=== PATIENT | male | born 1940 | race Caucasian/White ===

== ENCOUNTER 2017-09-05 10:03 | Emergency (ER) | payer OTHER ==
[2017-09-05] MEDS ORDERED: MORPHINE 4 MG/ML 1ML VIAL/SYRINGE (J2270) IV (10:30)
[2017-09-05] MEDS: NS 1,000 ML IV (10:40)
[2017-09-05] MEDS: ceFAZolin SOD 1 GM in D5W MINI-BAG PLUS 50 ML IV (10:41)
[2017-09-05] MEDS: TETANUS/DIPHTHERIA TOX ADSORB ADULT 0.5ML SYR/VIAL (90714) IM (10:41)
== END 2017-09-05 12:01 | disposition short-term general hospital (02) ==
LOC: M ED 10:03
DX: S68.521A Partial traumatic transphalangeal amputation of right thumb, initial encounter (principal); W26.8XXA Contact with other sharp object(s), not elsewhere classified, initial encounter; Y92.9 Unspecified place or not applicable; Y93.9 Activity, unspecified; Y99.9 Unspecified external cause status; I10 Essential (primary) hypertension; E11.9 Type 2 diabetes mellitus without complications; Z87.891 Personal history of nicotine dependence
CPT/HCPCS: J0690

== ENCOUNTER 2021-09-05 03:21 | Inpatient (IN) | payer MEDICARE, OTHER ==
[~2021-09-05] VITALS: Ht 182.9 cm; Wt 95.0 kg
[2021-09-05] MEDS ORDERED: ACETAMINOPHEN TAB 650MG DOSE (2X325MG) PO ONE (03:45)
[2021-09-05 04:04] LABS: BASO % 0.2 % (0.0-1.0); EOS % 0.1 % (0.0-3.0); HEMATOCRIT 33.9 % (42.0-52.0); LYMPH # 0.6 10^3/uL (1.5-5.0); LYMPH % 4.7 % (24.0-44.0); MEAN CORPUSCULAR HEMOGLOBIN 32.5 pg (27.0-33.0); MEAN CORPUSCULAR HGB CONC 32.4 g/dl (32.0-36.5); MEAN CORPUSCULAR VOLUME 100.3 fl (80.0-96.0); MONO # 0.7 10^3/uL (0.0-0.8); MONO % 5.8 % (2.0-8.0); NEUTROPHILS # 10.7 10^3/uL (1.5-8.5); NEUTROPHILS % 86.8 % (36.0-66.0); PLATELET COUNT, AUTOMATED 147 10^3/uL (150-450); RED BLOOD COUNT 3.38 10^6/uL (4.30-6.10); WHITE BLOOD COUNT 12.3 10^3/uL (4.0-10.0)
[2021-09-05] MEDS ORDERED: METO1TAB87 PO (04:17)
[2021-09-05] MEDS ORDERED: PIOG1TAB55 PO (04:17)
[2021-09-05 04:21] LABS: CALCIUM LEVEL 9.2 MG/DL (8.8-10.2); CREATININE FOR GFR 1.31 MG/DL (0.70-1.30); MAGNESIUM LEVEL 1.6 MG/DL (1.8-2.4)
[2021-09-05] MEDS ORDERED: GLIM4TAB5 PO (04:23)
[2021-09-05] MEDS ORDERED: XARE20TA PO (04:23)
[2021-09-05] MEDS ORDERED: METF10004 PO (04:23)
[2021-09-05] MEDS ORDERED: RAMI1CAP26 PO (04:23)
[2021-09-05 04:39] LABS: RSV AMPLIFICATION NEGATIVE (NEGATIVE)
[2021-09-05] MEDS ORDERED: PIPERACILLIN/TAZOBACTAM SOD 4.5 GM in D5W MINI-BAG PLUS 50 ML IV ONE (05:00)
[2021-09-05] MEDS ORDERED: NS 1,000 ML IV ONE (05:00)
[2021-09-05] MEDS ORDERED: VANCOMYCIN HCL 1,000 MG in IV FLUID PLACE HOLDER 1 EA IV ONE (05:00)
[2021-09-05] MEDS ORDERED: GLUCAGON INJ 1MG VIAL SC PRN (05:45)
[2021-09-05] MEDS ORDERED: VANCOMYCIN HCL 1,000 MG, VIAL MATE ADAPTER 1 EACH in NS 250 ML IV SCH (05:45)
[2021-09-05] MEDS ORDERED: DEXTROSE 50% 50 ML SYRINGE IV PRN (05:45)
[2021-09-05] MEDS ORDERED: SODIUM CHLORIDE 0.9% 1000ML IV SCH (05:45)
[2021-09-05] MEDS ORDERED: GLUCOSE 4GM CHEW TABLET PO PRN (05:45)
[2021-09-05] MEDS ORDERED: VANCOMYCIN HCL 1,000 MG, VIAL MATE ADAPTER 1 EACH in NS 250 ML IV ONE ×6 (06:00)
[2021-09-05] MEDS ORDERED: VITA100093 PO (06:06)
[2021-09-05] MEDS ORDERED: CINN500C15 PO (06:06)
[2021-09-05] MEDS ORDERED: NS 1,000 ML IV SCH (06:20)
[2021-09-05] MEDS ORDERED: HOME MED LIST COMPLETE! XX SCH (06:35)
[2021-09-05] MEDS: DOCUSATE SODIUM 100MG CAPSULE PO SCH ×2 (09:13→20:06)
[2021-09-05] MEDS: INSULIN LISPRO (NovoLOG) PER UNIT SC SCH ×4 (09:13→20:06)
[2021-09-05] MEDS ORDERED: NS 500 ML IV ONE (10:25)
[2021-09-05] MEDS ORDERED: NS 2,000 ML IV ONE (10:30)
[2021-09-05] MEDS: cefTRIAXone SOD 1 GM in D5W MINI-BAG PLUS 50 ML IV SCH (13:13)
[2021-09-05 14:30] VITALS: BP 126/53
[2021-09-05] MEDS ORDERED: MAGNESIUM OXIDE 400MG TAB (MAG-OX) PO ONE (14:30)
[2021-09-05] MEDS: NS 1,000 ML IV SCH (14:51)
[2021-09-05] MEDS: THIAMINE INJection 500 MG in NS 100 ML IV SCH (17:44)
[2021-09-05 18:00] VITALS: BP 121/59
[2021-09-05 19:54] VITALS: BP 125/54
[2021-09-05] MEDS: VANCOMYCIN HCL 750 MG, VIAL MATE ADAPTER 1 EACH in D5W 250 ML IV SCH (20:05)
[2021-09-05] MEDS: NYSTATIN 100,000 UNITS/GM TOPICAL PWD 15 GM TOP SCH (21:00)
[2021-09-06] VITALS (10 sets, daily range): BP systolic 110–142; BP diastolic 55–78; O2SAT 96–98
[2021-09-06] MEDS: NS 1,000 ML IV SCH ×2 (00:32→09:43)
[2021-09-06] MEDS: THIAMINE INJection 500 MG in NS 100 ML IV SCH (02:52)
[2021-09-06] MEDS: INSULIN LISPRO (NovoLOG) PER UNIT SC SCH ×4 (07:30→21:00)
[2021-09-06 07:59] LABS: HEMATOCRIT 31.8 % (42.0-52.0); HEMOGLOBIN 10.1 g/dl (13.5-17.5); MEAN CORPUSCULAR HEMOGLOBIN 32.9 pg (27.0-33.0); MEAN CORPUSCULAR HGB CONC 31.8 g/dl (32.0-36.5); MEAN CORPUSCULAR VOLUME 103.6 fl (80.0-96.0); PLATELET COUNT, AUTOMATED 131 10^3/uL (150-450); RED BLOOD COUNT 3.07 10^6/uL (4.30-6.10); WHITE BLOOD COUNT 10.3 10^3/uL (4.0-10.0)
[2021-09-06 08:22] LABS: EOSINOPHILS 2 % (0-3); LYMPHOCYTES 9 % (16-44); MONOCYTES 5 % (0-5); NEUTROPHILS 71 % (28-66)
[2021-09-06 08:23] LABS: CALCIUM LEVEL 8.6 MG/DL (8.8-10.2); CREATININE FOR GFR 1.41 MG/DL (0.70-1.30); GLOMERULAR FILTRATION RATE 51.5 (>35); MAGNESIUM LEVEL 1.8 MG/DL (1.8-2.4); PHOSPHORUS LEVEL 2.5 MG/DL (2.5-4.9); POTASSIUM SERUM 3.7 MEQ/L (3.5-5.1); VANCOMYCIN LEVEL TROUGH 13.8 UG/ML (10.0-20.0)
[2021-09-06 08:23] LABS: DOHLE BODIES 1+; OVALOCYTES 1+
[2021-09-06 08:24] LABS: PLATELET ESTIMATE DECREASED (NORMAL)
[2021-09-06] MEDS: DOCUSATE SODIUM 100MG CAPSULE PO SCH ×2 (09:41→21:11)
[2021-09-06] MEDS: VANCOMYCIN HCL 750 MG, VIAL MATE ADAPTER 1 EACH in D5W 250 ML IV SCH (09:42)
[2021-09-06] MEDS: NYSTATIN 100,000 UNITS/GM TOPICAL PWD 15 GM TOP SCH ×2 (11:22→21:11)
[2021-09-06] MEDS ORDERED: ACETAMINOPHEN TAB 650MG DOSE (2X325MG) PO ONE (11:25)
[2021-09-06] MEDS ORDERED: methylPREDNISolone 40MG 1ML VIAL IV ONE (11:50)
[2021-09-06] MEDS: IPRATROPIUM 0.5MG/ALBUTEROL 2.5MG INH SOL UD 3ML (DUONEB) NEB SCH ×4 (11:54→23:45)
[2021-09-06] MEDS ORDERED: FUROSEMIDE 20MG/2ML VIAL (J1940) IV ONE (11:55)
[2021-09-06] MEDS: cefTRIAXone SOD 1 GM in D5W MINI-BAG PLUS 50 ML IV SCH (12:02)
[2021-09-06] MEDS ORDERED: INSULIN LISPRO (NovoLOG) PER UNIT SC ONE ×2 (17:25→22:00)
[2021-09-06] MEDS: methylPREDNISolone 40MG 1ML VIAL IV SCH ×2 (19:52→21:48)
[2021-09-06] MEDS: LINEZOLID 600MG TABLET (ZYVOX) PO SCH (21:11)
[2021-09-07] MEDS ORDERED: LEVEMIR (INSULIN DETEMIR) 1 UNITS/0.01ML SC ONE
[2021-09-07 01:18] VITALS: BP 128/60
[2021-09-07] MEDS: IPRATROPIUM 0.5MG/ALBUTEROL 2.5MG INH SOL UD 3ML (DUONEB) NEB SCH ×3 (04:00→11:13)
[2021-09-07] MEDS ORDERED: INSULIN LISPRO (NovoLOG) PER UNIT SC ONE ×3 (05:00→13:05)
[2021-09-07] MEDS: methylPREDNISolone 40MG 1ML VIAL IV SCH (05:08)
[2021-09-07 05:59] LABS: HEMATOCRIT 28.2 % (42.0-52.0); HEMOGLOBIN 9.4 g/dl (13.5-17.5); MEAN CORPUSCULAR HGB CONC 33.3 g/dl (32.0-36.5); MEAN CORPUSCULAR VOLUME 98.9 fl (80.0-96.0); PLATELET COUNT, AUTOMATED 129 10^3/uL (150-450); RED BLOOD COUNT 2.85 10^6/uL (4.30-6.10)
[2021-09-07] MEDS ORDERED: LevoFLOXacin 750 MG TABLET PO SCH (06:00)
[2021-09-07 06:14] VITALS: BP 129/61
[2021-09-07 06:28] LABS: CALCIUM LEVEL 8.5 MG/DL (8.8-10.2); CREATININE FOR GFR 1.61 MG/DL (0.70-1.30); GLOMERULAR FILTRATION RATE 44.2 (>35); MAGNESIUM LEVEL 2.2 MG/DL (1.8-2.4); PHOSPHORUS LEVEL 2.2 MG/DL (2.5-4.9); POTASSIUM SERUM 3.8 MEQ/L (3.5-5.1)
[2021-09-07 06:32] LABS: HEMOGLOBIN A1c 6.8 %
[2021-09-07 07:39] VITALS: O2SAT 96
[2021-09-07] MEDS: DOCUSATE SODIUM 100MG CAPSULE PO SCH ×2 (09:51→20:43)
[2021-09-07] MEDS: LINEZOLID 600MG TABLET (ZYVOX) PO SCH ×2 (09:51→20:43)
[2021-09-07] MEDS: FUROSEMIDE 20MG/2ML VIAL (J1940) IV SCH ×3 (09:51→23:20)
[2021-09-07] MEDS: INSULIN LISPRO (NovoLOG) PER UNIT SC SCH ×4 (09:53→20:50)
[2021-09-07] MEDS: NYSTATIN 100,000 UNITS/GM TOPICAL PWD 15 GM TOP SCH ×2 (09:59→20:44)
[2021-09-07 10:00] VITALS: BP 122/61
[2021-09-07 14:00] VITALS: BP 138/61
[2021-09-07] MEDS: LACTOBACILLUS ACIDOPHILUS CAP (BACID) PO SCH (14:39)
[2021-09-07] MEDS: K-PHOS ORIGINAL (POT.ACID PHOSPHATE) 500MG TAB PO SCH ×2 (14:39→20:43)
[2021-09-07] MEDS: METOPROLOL TART 12.5 MG PER 1/2 TAB PO SCH ×2 (14:40→20:44)
[2021-09-07] MEDS: SYMBICORT 160/4.5MCG INHALER 6GM INH SCH ×2 (15:59→19:59)
[2021-09-07] MEDS: RIVAROXABAN 20MG TAB (XARELTO) PO SCH (17:21)
[2021-09-07 21:00] VITALS: BP 136/64
[2021-09-08 02:00] VITALS: BP 143/80
[2021-09-08] MEDS: RAMELTEON 8 MG TAB (ROZEREM) PO PRN (02:59)
[2021-09-08] MEDS ORDERED: OLANZapine INTRAMUSCULAR 10MG VIAL IM PRN (04:00)
[2021-09-08 06:02] LABS: BASO % 0.2 % (0.0-1.0); EOS % 0.1 % (0.0-3.0); HEMATOCRIT 33.8 % (42.0-52.0); HEMOGLOBIN 11.1 g/dl (13.5-17.5); LYMPH % 6.4 % (24.0-44.0); MEAN CORPUSCULAR HGB CONC 32.8 g/dl (32.0-36.5); MEAN CORPUSCULAR VOLUME 97.4 fl (80.0-96.0); MONO # 1.2 10^3/uL (0.0-0.8); MONO % 7.8 % (2.0-8.0); NEUTROPHILS # 13.4 10^3/uL (1.5-8.5); NEUTROPHILS % 83.9 % (36.0-66.0); PLATELET COUNT, AUTOMATED 184 10^3/uL (150-450); RED BLOOD COUNT 3.47 10^6/uL (4.30-6.10)
[2021-09-08 06:25] LABS: CALCIUM LEVEL 8.9 MG/DL (8.8-10.2); CREATININE FOR GFR 1.76 MG/DL (0.70-1.30); GLOMERULAR FILTRATION RATE 39.9 (>35); MAGNESIUM LEVEL 1.8 MG/DL (1.8-2.4); PHOSPHORUS LEVEL 2.3 MG/DL (2.5-4.9); POTASSIUM SERUM 3.7 MEQ/L (3.5-5.1)
[2021-09-08] MEDS ORDERED: OLANZapine INTRAMUSCULAR 10MG VIAL IM ONE (07:05)
[2021-09-08] MEDS: SYMBICORT 160/4.5MCG INHALER 6GM INH SCH ×2 (07:54→19:19)
[2021-09-08] MEDS: PIPERACILLIN/TAZOBACTAM SOD 3.375 GM in D5W MINI-BAG PLUS 50 ML IV SCH ×3 (08:19→20:12)
[2021-09-08] MEDS: LACTOBACILLUS ACIDOPHILUS CAP (BACID) PO SCH (08:20)
[2021-09-08] MEDS: INSULIN LISPRO (NovoLOG) PER UNIT SC SCH ×4 (08:20→20:27)
[2021-09-08] MEDS: DOCUSATE SODIUM 100MG CAPSULE PO SCH ×2 (08:21→20:08)
[2021-09-08] MEDS: METOPROLOL TART 12.5 MG PER 1/2 TAB PO SCH ×2 (08:22→20:09)
[2021-09-08] MEDS: LINEZOLID 600MG TABLET (ZYVOX) PO SCH ×2 (08:27→20:08)
[2021-09-08] MEDS: NYSTATIN 100,000 UNITS/GM TOPICAL PWD 15 GM TOP SCH ×2 (08:27→20:09)
[2021-09-08 12:00] VITALS: BP 140/72
[2021-09-08] MEDS: RIVAROXABAN 20MG TAB (XARELTO) PO SCH (18:24)
[2021-09-08 21:45] VITALS: BP 130/80
[2021-09-09] MEDS: PIPERACILLIN/TAZOBACTAM SOD 3.375 GM in D5W MINI-BAG PLUS 50 ML IV SCH ×4 (01:04→20:07)
[2021-09-09 02:00] VITALS: BP 129/59
[2021-09-09 05:24] VITALS: BP 145/64
[2021-09-09 06:45] LABS: BASO % 0.4 % (0.0-1.0); EOS # 0.1 10^3/uL (0.0-0.5); HEMATOCRIT 29.7 % (42.0-52.0); HEMOGLOBIN 9.8 g/dl (13.5-17.5); LYMPH # 1.5 10^3/uL (1.5-5.0); LYMPH % 14.2 % (24.0-44.0); MEAN CORPUSCULAR HEMOGLOBIN 31.9 pg (27.0-33.0); MEAN CORPUSCULAR VOLUME 96.7 fl (80.0-96.0); MONO # 0.9 10^3/uL (0.0-0.8); MONO % 8.6 % (2.0-8.0); NEUTROPHILS # 7.3 10^3/uL (1.5-8.5); NEUTROPHILS % 69.3 % (36.0-66.0); PLATELET COUNT, AUTOMATED 198 10^3/uL (150-450); RED BLOOD COUNT 3.07 10^6/uL (4.30-6.10); WHITE BLOOD COUNT 10.5 10^3/uL (4.0-10.0)
[2021-09-09 07:08] LABS: CALCIUM LEVEL 8.6 MG/DL (8.8-10.2); CREATININE FOR GFR 1.79 MG/DL (0.70-1.30); GLOMERULAR FILTRATION RATE 39.1 (>35); POTASSIUM SERUM 3.5 MEQ/L (3.5-5.1)
[2021-09-09] MEDS: SYMBICORT 160/4.5MCG INHALER 6GM INH SCH ×2 (07:35→20:32)
[2021-09-09] MEDS: LACTOBACILLUS ACIDOPHILUS CAP (BACID) PO SCH (08:39)
[2021-09-09] MEDS: DOCUSATE SODIUM 100MG CAPSULE PO SCH ×2 (08:40→20:08)
[2021-09-09] MEDS: NYSTATIN 100,000 UNITS/GM TOPICAL PWD 15 GM TOP SCH ×2 (08:40→20:08)
[2021-09-09] MEDS: INSULIN LISPRO (NovoLOG) PER UNIT SC SCH ×4 (08:40→20:12)
[2021-09-09] MEDS: METOPROLOL TART 25 MG TABLET PO SCH ×2 (08:41→20:08)
[2021-09-09 10:00] VITALS: BP 118/67
[2021-09-09] MEDS ORDERED: POTASSIUM CHLORIDE 10MEQ SR TABLET PO ONE (12:00)
[2021-09-09 14:00] VITALS: BP 120/63
[2021-09-09] MEDS: RIVAROXABAN 20MG TAB (XARELTO) PO SCH (17:56)
[2021-09-09] MEDS: RAMELTEON 8 MG TAB (ROZEREM) PO PRN (20:07)
[2021-09-09] MEDS: LEVEMIR (INSULIN DETEMIR) 1 UNITS/0.01ML SC SCH (20:09)
[2021-09-09] MEDS: CEPHALEXIN 500 MG CAP PO SCH (23:07)
[2021-09-10] MEDS: CEPHALEXIN 500 MG CAP PO SCH ×4 (05:03→23:20)
[2021-09-10 05:15] VITALS: BP 137/67
[2021-09-10] MEDS: ACETAMINOPHEN TAB 650MG DOSE (2X325MG) PO PRN (05:58)
[2021-09-10 06:08] LABS: HEMATOCRIT 31.8 % (42.0-52.0); HEMOGLOBIN 10.6 g/dl (13.5-17.5); MEAN CORPUSCULAR HEMOGLOBIN 33.1 pg (27.0-33.0); MEAN CORPUSCULAR HGB CONC 33.3 g/dl (32.0-36.5); MEAN CORPUSCULAR VOLUME 99.4 fl (80.0-96.0); PLATELET COUNT, AUTOMATED 214 10^3/uL (150-450); WHITE BLOOD COUNT 12.8 10^3/uL (4.0-10.0)
[2021-09-10 06:35] LABS: CALCIUM LEVEL 8.8 MG/DL (8.8-10.2); CREATININE FOR GFR 1.64 MG/DL (0.70-1.30); GLOMERULAR FILTRATION RATE 43.2 (>35); MAGNESIUM LEVEL 2.1 MG/DL (1.8-2.4); PHOSPHORUS LEVEL 3.9 MG/DL (2.5-4.9); POTASSIUM SERUM 3.9 MEQ/L (3.5-5.1)
[2021-09-10] MEDS: SYMBICORT 160/4.5MCG INHALER 6GM INH SCH ×2 (08:06→20:19)
[2021-09-10] MEDS: NYSTATIN 100,000 UNITS/GM TOPICAL PWD 15 GM TOP SCH ×2 (09:19→20:24)
[2021-09-10] MEDS: LACTOBACILLUS ACIDOPHILUS CAP (BACID) PO SCH (09:19)
[2021-09-10] MEDS: INSULIN LISPRO (NovoLOG) PER UNIT SC SCH ×4 (09:19→20:24)
[2021-09-10] MEDS: DOCUSATE SODIUM 100MG CAPSULE PO SCH ×2 (09:19→20:15)
[2021-09-10] MEDS: METOPROLOL TART 25 MG TABLET PO SCH ×2 (09:22→20:25)
[2021-09-10 12:52] LABS: CRYSTALS, BODY FLUID URIC ACID (NONE SEEN); SOURCE, BODY FLUID LFT KNEE; SOURCE, BODY FLUID CRYSTALS LFT KNEE; SYNOVIAL FLUID COLOR YELLOW (COLORLESS)
[2021-09-10 14:00] VITALS: BP 126/69
[2021-09-10 14:37] VITALS: BP_SYST 128; BP_SYST 141; BP_DIAS 67; BP_DIAS 70
[2021-09-10] MEDS ORDERED: predniSONE 5 MG TAB PO ONE (16:55)
[2021-09-10] MEDS: RIVAROXABAN 20MG TAB (XARELTO) PO SCH (17:47)
[2021-09-10 20:12] VITALS: BP 149/71
[2021-09-10] MEDS: RAMELTEON 8 MG TAB (ROZEREM) PO PRN (20:23)
[2021-09-10] MEDS: LEVEMIR (INSULIN DETEMIR) 1 UNITS/0.01ML SC SCH (20:24)
[2021-09-11 02:00] VITALS: BP 139/68
[2021-09-11] MEDS: CEPHALEXIN 500 MG CAP PO SCH ×4 (05:29→23:45)
[2021-09-11 05:30] VITALS: BP 165/73
[2021-09-11 06:39] LABS: HEMATOCRIT 29.7 % (42.0-52.0); HEMOGLOBIN 9.4 g/dl (13.5-17.5); MEAN CORPUSCULAR HEMOGLOBIN 31.3 pg (27.0-33.0); MEAN CORPUSCULAR HGB CONC 31.6 g/dl (32.0-36.5); PLATELET COUNT, AUTOMATED 234 10^3/uL (150-450); WHITE BLOOD COUNT 13.4 10^3/uL (4.0-10.0)
[2021-09-11 06:58] LABS: CALCIUM LEVEL 8.4 MG/DL (8.8-10.2); CREATININE FOR GFR 1.31 MG/DL (0.70-1.30); MAGNESIUM LEVEL 1.9 MG/DL (1.8-2.4); PHOSPHORUS LEVEL 3.3 MG/DL (2.5-4.9)
[2021-09-11] MEDS: SYMBICORT 160/4.5MCG INHALER 6GM INH SCH ×2 (07:36→19:44)
[2021-09-11] MEDS: DOCUSATE SODIUM 100MG CAPSULE PO SCH ×2 (07:40→21:05)
[2021-09-11] MEDS: LACTOBACILLUS ACIDOPHILUS CAP (BACID) PO SCH (07:40)
[2021-09-11] MEDS: METOPROLOL TART 25 MG TABLET PO SCH ×2 (07:40→21:04)
[2021-09-11] MEDS: INSULIN LISPRO (NovoLOG) PER UNIT SC SCH ×4 (07:41→20:53)
[2021-09-11] MEDS: NYSTATIN 100,000 UNITS/GM TOPICAL PWD 15 GM TOP SCH ×2 (07:42→21:05)
[2021-09-11 10:00] VITALS: BP 133/69
[2021-09-11] MEDS: allopurinoL 100 MG TAB PO SCH (11:00)
[2021-09-11] MEDS ORDERED: IBUPROFEN 600MG TAB PO SCH (12:00)
[2021-09-11 14:00] VITALS: BP 131/71
[2021-09-11 15:30] LABS: C REACTIVE PROTEIN QUANTITATIV 12.5 MG/DL (0.00-0.30)
[2021-09-11] MEDS: RIVAROXABAN 20MG TAB (XARELTO) PO SCH (17:48)
[2021-09-11] MEDS: predniSONE 20 MG TAB PO SCH (17:49)
[2021-09-11 18:00] VITALS: BP 135/71
[2021-09-11] MEDS: LEVEMIR (INSULIN DETEMIR) 1 UNITS/0.01ML SC SCH (21:02)
[2021-09-11 22:00] VITALS: BP_SYST 118; BP_SYST 139; BP_DIAS 61; BP_DIAS 71
[2021-09-11 22:07] LABS: URIC ACID 6.6 MG/DL (3.5-7.2)
[2021-09-12 05:20] VITALS: BP 141/73
[2021-09-12] MEDS: CEPHALEXIN 500 MG CAP PO SCH ×4 (05:30→23:11)
[2021-09-12 06:04] LABS: HEMATOCRIT 28.2 % (42.0-52.0); HEMOGLOBIN 9.2 g/dl (13.5-17.5); MEAN CORPUSCULAR HEMOGLOBIN 32.2 pg (27.0-33.0); MEAN CORPUSCULAR HGB CONC 32.6 g/dl (32.0-36.5); MEAN CORPUSCULAR VOLUME 98.6 fl (80.0-96.0); PLATELET COUNT, AUTOMATED 254 10^3/uL (150-450); RED BLOOD COUNT 2.86 10^6/uL (4.30-6.10); WHITE BLOOD COUNT 12.4 10^3/uL (4.0-10.0)
[2021-09-12 06:39] LABS: ALT/SGPT 84 U/L (12-78); BILIRUBIN,TOTAL 0.8 MG/DL (0.2-1.0); BLOOD UREA NITROGEN 32 MG/DL (7-18); CALCIUM LEVEL 8.2 MG/DL (8.8-10.2); CARBON DIOXIDE LEVEL 31 MEQ/L (21-32); CHLORIDE LEVEL 101 MEQ/L (98-107); GLOMERULAR FILTRATION RATE 56.5 (>35); GLUCOSE, FASTING 323 MG/DL (70-100); MAGNESIUM LEVEL 2.2 MG/DL (1.8-2.4); PHOSPHORUS LEVEL 3.2 MG/DL (2.5-4.9); POTASSIUM SERUM 3.9 MEQ/L (3.5-5.1); SODIUM LEVEL 139 MEQ/L (136-145)
[2021-09-12] MEDS: SYMBICORT 160/4.5MCG INHALER 6GM INH SCH ×2 (07:43→20:00)
[2021-09-12] MEDS: allopurinoL 100 MG TAB PO SCH (07:56)
[2021-09-12] MEDS: LACTOBACILLUS ACIDOPHILUS CAP (BACID) PO SCH (07:56)
[2021-09-12] MEDS: NYSTATIN 100,000 UNITS/GM TOPICAL PWD 15 GM TOP SCH ×2 (07:56→20:13)
[2021-09-12] MEDS: predniSONE 20 MG TAB PO SCH (07:56)
[2021-09-12] MEDS: DOCUSATE SODIUM 100MG CAPSULE PO SCH ×2 (07:56→20:07)
[2021-09-12] MEDS: INSULIN LISPRO (NovoLOG) PER UNIT SC SCH ×4 (07:57→20:14)
[2021-09-12] MEDS: METOPROLOL TART 25 MG TABLET PO SCH ×2 (07:58→20:15)
[2021-09-12] MEDS ORDERED: predniSONE 20 MG TAB PO SCH (09:00)
[2021-09-12 13:19] LABS: HEPATITIS B SURFACE ANTIGEN NEGATIVE (NEGATIVE)
[2021-09-12 13:40] LABS: HEPATITIS B CORE ANTIBODY IGM NEGATIVE (NEGATIVE); HEPATITIS C VIRUS ABY INDEX < 0.0 INDEX (<0.8)
[2021-09-12] MEDS ORDERED: ISOVUE-370 76% 100ML VIAL As Ordered ONE (15:54)
[2021-09-12] MEDS: RIVAROXABAN 20MG TAB (XARELTO) PO SCH (17:01)
[2021-09-12] MEDS ORDERED: INSULIN LISPRO (NovoLOG) PER UNIT SC ONE (17:35)
[2021-09-12] MEDS: LEVEMIR (INSULIN DETEMIR) 1 UNITS/0.01ML SC SCH (20:13)
[2021-09-12] MEDS: RAMELTEON 8 MG TAB (ROZEREM) PO PRN (20:14)
[2021-09-12] MEDS ORDERED: LEVEMIR (INSULIN DETEMIR) 1 UNITS/0.01ML SC SCH (21:00)
[2021-09-13] MEDS: CEPHALEXIN 500 MG CAP PO SCH ×4 (05:07→23:53)
[2021-09-13 05:18] VITALS: BP 144/78
[2021-09-13 06:11] LABS: HEMATOCRIT 30.6 % (42.0-52.0); HEMOGLOBIN 9.9 g/dl (13.5-17.5); MEAN CORPUSCULAR HEMOGLOBIN 31.3 pg (27.0-33.0); MEAN CORPUSCULAR HGB CONC 32.4 g/dl (32.0-36.5); MEAN CORPUSCULAR VOLUME 96.8 fl (80.0-96.0); PLATELET COUNT, AUTOMATED 301 10^3/uL (150-450); RED BLOOD COUNT 3.16 10^6/uL (4.30-6.10); WHITE BLOOD COUNT 15.4 10^3/uL (4.0-10.0)
[2021-09-13 06:42] LABS: ALBUMIN 2.2 GM/DL (3.2-5.2); ALT/SGPT 76 U/L (12-78); BILIRUBIN,DIRECT 0.3 MG/DL (0.0-0.2); BILIRUBIN,TOTAL 0.6 MG/DL (0.2-1.0); BLOOD UREA NITROGEN 32 MG/DL (7-18); CALCIUM LEVEL 8.6 MG/DL (8.8-10.2); CARBON DIOXIDE LEVEL 29 MEQ/L (21-32); CHLORIDE LEVEL 100 MEQ/L (98-107); CREATININE FOR GFR 1.22 MG/DL (0.70-1.30); GLOMERULAR FILTRATION RATE > 60.0 (>35); GLUCOSE, FASTING 331 MG/DL (70-100); MAGNESIUM LEVEL 2.1 MG/DL (1.8-2.4); PHOSPHORUS LEVEL 2.9 MG/DL (2.5-4.9); POTASSIUM SERUM 3.8 MEQ/L (3.5-5.1); SODIUM LEVEL 137 MEQ/L (136-145); TOTAL PROTEIN 6.2 GM/DL (6.4-8.2)
[2021-09-13] MEDS: SYMBICORT 160/4.5MCG INHALER 6GM INH SCH ×2 (08:22→20:15)
[2021-09-13] MEDS: INSULIN LISPRO (NovoLOG) PER UNIT SC SCH ×4 (09:35→20:24)
[2021-09-13] MEDS: allopurinoL 100 MG TAB PO SCH (09:36)
[2021-09-13] MEDS: NYSTATIN 100,000 UNITS/GM TOPICAL PWD 15 GM TOP SCH ×2 (09:36→20:24)
[2021-09-13] MEDS: DOCUSATE SODIUM 100MG CAPSULE PO SCH ×2 (09:36→20:23)
[2021-09-13] MEDS: predniSONE 20 MG TAB PO SCH (09:36)
[2021-09-13] MEDS: LACTOBACILLUS ACIDOPHILUS CAP (BACID) PO SCH (09:36)
[2021-09-13] MEDS: METOPROLOL TART 25 MG TABLET PO SCH ×2 (09:37→20:23)
[2021-09-13] MEDS: RIVAROXABAN 20MG TAB (XARELTO) PO SCH (18:04)
[2021-09-13] MEDS: RAMELTEON 8 MG TAB (ROZEREM) PO PRN (20:22)
[2021-09-13] MEDS: LEVEMIR (INSULIN DETEMIR) 1 UNITS/0.01ML SC SCH (20:23)
[2021-09-14 06:15] VITALS: BP 107/81
[2021-09-14 06:25] VITALS: BP 138/72
[2021-09-14] MEDS: ACETAMINOPHEN TAB 650MG DOSE (2X325MG) PO PRN (06:29)
[2021-09-14 07:39] LABS: BASO % 0.1 % (0.0-1.0); EOS # 0.1 10^3/uL (0.0-0.5); EOS % 0.6 % (0.0-3.0); HEMATOCRIT 28.4 % (42.0-52.0); HEMOGLOBIN 9.1 g/dl (13.5-17.5); LYMPH # 1.7 10^3/uL (1.5-5.0); LYMPH % 12.4 % (24.0-44.0); MEAN CORPUSCULAR HEMOGLOBIN 32.3 pg (27.0-33.0); MEAN CORPUSCULAR VOLUME 100.7 fl (80.0-96.0); MONO # 0.8 10^3/uL (0.0-0.8); MONO % 5.8 % (2.0-8.0); NEUTROPHILS # 10.5 10^3/uL (1.5-8.5); NEUTROPHILS % 78.2 % (36.0-66.0); PLATELET COUNT, AUTOMATED 300 10^3/uL (150-450); RED BLOOD COUNT 2.82 10^6/uL (4.30-6.10); WHITE BLOOD COUNT 13.5 10^3/uL (4.0-10.0)
[2021-09-14 08:02] LABS: ALBUMIN 2.1 GM/DL (3.2-5.2); BILIRUBIN,TOTAL 0.7 MG/DL (0.2-1.0); CALCIUM LEVEL 8.8 MG/DL (8.8-10.2); CREATININE FOR GFR 1.33 MG/DL (0.70-1.30); GLOMERULAR FILTRATION RATE 55.1 (>35); POTASSIUM SERUM 3.6 MEQ/L (3.5-5.1); TOTAL PROTEIN 6.7 GM/DL (6.4-8.2)
[2021-09-14] MEDS: SYMBICORT 160/4.5MCG INHALER 6GM INH SCH ×2 (08:18→19:38)
[2021-09-14] MEDS: INSULIN LISPRO (NovoLOG) PER UNIT SC SCH ×4 (08:18→21:12)
[2021-09-14] MEDS: AMPICILLIN SOD/SULBACTAM SOD 3 GM in D5W MINI-BAG PLUS 100 ML IV SCH ×2 (08:18→13:50)
[2021-09-14] MEDS: DOCUSATE SODIUM 100MG CAPSULE PO SCH ×2 (08:18→21:11)
[2021-09-14] MEDS: LACTOBACILLUS ACIDOPHILUS CAP (BACID) PO SCH (08:19)
[2021-09-14] MEDS: METOPROLOL TART 25 MG TABLET PO SCH ×2 (08:19→21:11)
[2021-09-14] MEDS: allopurinoL 100 MG TAB PO SCH (08:19)
[2021-09-14] MEDS: predniSONE 20 MG TAB PO SCH (08:19)
[2021-09-14] MEDS: NYSTATIN 100,000 UNITS/GM TOPICAL PWD 15 GM TOP SCH ×2 (08:20→21:13)
[2021-09-14] MEDS: RIVAROXABAN 20MG TAB (XARELTO) PO SCH (17:25)
[2021-09-14] MEDS: AUGMENTIN 875 MG TAB PO SCH (21:11)
[2021-09-14] MEDS: LEVEMIR (INSULIN DETEMIR) 1 UNITS/0.01ML SC SCH (21:12)
[2021-09-14 21:30] VITALS: BP 113/66
[2021-09-15 05:36] VITALS: BP 123/67
[2021-09-15] MEDS: LACTOBACILLUS ACIDOPHILUS CAP (BACID) PO SCH (07:54)
[2021-09-15] MEDS: predniSONE 20 MG TAB PO SCH (07:54)
[2021-09-15] MEDS: METOPROLOL TART 25 MG TABLET PO SCH ×2 (07:54→20:44)
[2021-09-15] MEDS: DOCUSATE SODIUM 100MG CAPSULE PO SCH ×2 (07:54→20:43)
[2021-09-15] MEDS: AUGMENTIN 875 MG TAB PO SCH (07:55)
[2021-09-15] MEDS: allopurinoL 100 MG TAB PO SCH (07:55)
[2021-09-15] MEDS: INSULIN LISPRO (NovoLOG) PER UNIT SC SCH ×4 (07:55→20:43)
[2021-09-15] MEDS: NYSTATIN 100,000 UNITS/GM TOPICAL PWD 15 GM TOP SCH ×2 (07:56→20:45)
[2021-09-15] MEDS: SYMBICORT 160/4.5MCG INHALER 6GM INH SCH (08:09)
[2021-09-15] MEDS ORDERED: PANTOPRAZOLE 40MG VIAL IV SCH (09:00)
[2021-09-15] MEDS ORDERED: MAALOX 30 ML SUSP *UDC PO PRN (09:45)
[2021-09-15] MEDS: PANTOPRAZOLE 40MG TAB (PROTONIX) PO SCH (10:13)
[2021-09-15] MEDS: ACETAMINOPHEN TAB 650MG DOSE (2X325MG) PO PRN (11:32)
[2021-09-15 12:35] LABS: BASO % 0.2 % (0.0-1.0); EOS # 0.1 10^3/uL (0.0-0.5); EOS % 0.3 % (0.0-3.0); HEMATOCRIT 28.1 % (42.0-52.0); HEMOGLOBIN 9.2 g/dl (13.5-17.5); LYMPH # 0.8 10^3/uL (1.5-5.0); LYMPH % 4.9 % (24.0-44.0); MEAN CORPUSCULAR HEMOGLOBIN 32.3 pg (27.0-33.0); MEAN CORPUSCULAR HGB CONC 32.7 g/dl (32.0-36.5); MEAN CORPUSCULAR VOLUME 98.6 fl (80.0-96.0); MONO # 0.8 10^3/uL (0.0-0.8); MONO % 4.9 % (2.0-8.0); NEUTROPHILS # 14.5 10^3/uL (1.5-8.5); NEUTROPHILS % 87.6 % (36.0-66.0); PLATELET COUNT, AUTOMATED 295 10^3/uL (150-450); RED BLOOD COUNT 2.85 10^6/uL (4.30-6.10); WHITE BLOOD COUNT 16.6 10^3/uL (4.0-10.0)
[2021-09-15 13:32] LABS: ALBUMIN 2.1 GM/DL (3.2-5.2); ALT/SGPT 74 U/L (12-78); BILIRUBIN,DIRECT 0.6 MG/DL (0.0-0.2); BILIRUBIN,TOTAL 1.2 MG/DL (0.2-1.0); BLOOD UREA NITROGEN 29 MG/DL (7-18); CALCIUM LEVEL 8.7 MG/DL (8.8-10.2); CARBON DIOXIDE LEVEL 29 MEQ/L (21-32); CHLORIDE LEVEL 104 MEQ/L (98-107); CREATININE FOR GFR 1.17 MG/DL (0.70-1.30); GLOMERULAR FILTRATION RATE > 60.0 (>35); GLUCOSE, FASTING 117 MG/DL (70-100); LIPASE 160 U/L (73-393); POTASSIUM SERUM 4.1 MEQ/L (3.5-5.1); SODIUM LEVEL 140 MEQ/L (136-145)
[2021-09-15] MEDS: RIVAROXABAN 20MG TAB (XARELTO) PO SCH (17:08)
[2021-09-15] MEDS: LEVEMIR (INSULIN DETEMIR) 1 UNITS/0.01ML SC SCH (20:43)
[2021-09-15] MEDS: PIPERACILLIN/TAZOBACTAM SOD 3.375 GM in D5W MINI-BAG PLUS 50 ML IV SCH (20:44)
[2021-09-15 20:45] VITALS: BP 122/66
[2021-09-16] MEDS: PIPERACILLIN/TAZOBACTAM SOD 3.375 GM in D5W MINI-BAG PLUS 50 ML IV SCH ×4 (02:03→20:56)
[2021-09-16 05:39] VITALS: BP 141/65
[2021-09-16 06:16] LABS: HEMATOCRIT 28.3 % (42.0-52.0); HEMOGLOBIN 9.1 g/dl (13.5-17.5); MEAN CORPUSCULAR HEMOGLOBIN 32.3 pg (27.0-33.0); MEAN CORPUSCULAR HGB CONC 32.2 g/dl (32.0-36.5); MEAN CORPUSCULAR VOLUME 100.4 fl (80.0-96.0); PLATELET COUNT, AUTOMATED 337 10^3/uL (150-450); RED BLOOD COUNT 2.82 10^6/uL (4.30-6.10)
[2021-09-16 07:07] LABS: CALCIUM LEVEL 8.9 MG/DL (8.8-10.2); CREATININE FOR GFR 1.36 MG/DL (0.70-1.30); GLOMERULAR FILTRATION RATE 53.7 (>35); POTASSIUM SERUM 3.9 MEQ/L (3.5-5.1)
[2021-09-16] MEDS: SYMBICORT 160/4.5MCG INHALER 6GM INH SCH ×3 (07:18→20:00)
[2021-09-16] MEDS: PANTOPRAZOLE 40MG TAB (PROTONIX) PO SCH (08:54)
[2021-09-16] MEDS: INSULIN LISPRO (NovoLOG) PER UNIT SC SCH ×4 (08:54→20:58)
[2021-09-16] MEDS: allopurinoL 100 MG TAB PO SCH (08:54)
[2021-09-16] MEDS: LACTOBACILLUS ACIDOPHILUS CAP (BACID) PO SCH (08:54)
[2021-09-16] MEDS: predniSONE 20 MG TAB PO SCH (08:55)
[2021-09-16] MEDS: DOCUSATE SODIUM 100MG CAPSULE PO SCH ×3 (08:55→20:58)
[2021-09-16] MEDS: ACETAMINOPHEN TAB 650MG DOSE (2X325MG) PO PRN (08:57)
[2021-09-16] MEDS: METOPROLOL TART 25 MG TABLET PO SCH ×2 (08:57→20:57)
[2021-09-16] MEDS: NYSTATIN 100,000 UNITS/GM TOPICAL PWD 15 GM TOP SCH ×2 (09:00→20:58)
[2021-09-16 14:00] VITALS: BP 131/55
[2021-09-16] MEDS: RIVAROXABAN 20MG TAB (XARELTO) PO SCH (17:41)
[2021-09-16] MEDS: RAMELTEON 8 MG TAB (ROZEREM) PO PRN (20:56)
[2021-09-16] MEDS: LEVEMIR (INSULIN DETEMIR) 1 UNITS/0.01ML SC SCH (20:58)
[2021-09-16 22:00] VITALS: BP 132/67
[2021-09-17] MEDS: PIPERACILLIN/TAZOBACTAM SOD 3.375 GM in D5W MINI-BAG PLUS 50 ML IV SCH ×4 (02:21→20:56)
[2021-09-17 05:29] VITALS: BP 144/67
[2021-09-17 06:39] LABS: HEMATOCRIT 27.7 % (42.0-52.0); HEMOGLOBIN 8.8 g/dl (13.5-17.5); MEAN CORPUSCULAR HEMOGLOBIN 31.3 pg (27.0-33.0); MEAN CORPUSCULAR HGB CONC 31.8 g/dl (32.0-36.5); MEAN CORPUSCULAR VOLUME 98.6 fl (80.0-96.0); PLATELET COUNT, AUTOMATED 349 10^3/uL (150-450); RED BLOOD COUNT 2.81 10^6/uL (4.30-6.10)
[2021-09-17 07:06] LABS: CREATININE FOR GFR 1.34 MG/DL (0.70-1.30); GLOMERULAR FILTRATION RATE 54.6 (>35); POTASSIUM SERUM 4.1 MEQ/L (3.5-5.1)
[2021-09-17] MEDS: INSULIN LISPRO (NovoLOG) PER UNIT SC SCH ×4 (07:30→21:57)
[2021-09-17] MEDS: SYMBICORT 160/4.5MCG INHALER 6GM INH SCH ×2 (07:35→20:00)
[2021-09-17 08:05] LABS: C REACTIVE PROTEIN QUANTITATIV 14.3 MG/DL (0.00-0.30)
[2021-09-17 08:10] LABS: ERYTHROCYTE SEDIMENTATION RATE 129 mm/hr (0-20)
[2021-09-17] MEDS: METOPROLOL TART 25 MG TABLET PO SCH ×2 (08:17→20:59)
[2021-09-17] MEDS: DOCUSATE SODIUM 100MG CAPSULE PO SCH ×2 (08:17→20:56)
[2021-09-17] MEDS: PANTOPRAZOLE 40MG TAB (PROTONIX) PO SCH (08:17)
[2021-09-17] MEDS: allopurinoL 100 MG TAB PO SCH (08:17)
[2021-09-17] MEDS: predniSONE 20 MG TAB PO SCH (08:17)
[2021-09-17] MEDS: LACTOBACILLUS ACIDOPHILUS CAP (BACID) PO SCH (08:17)
[2021-09-17] MEDS: NYSTATIN 100,000 UNITS/GM TOPICAL PWD 15 GM TOP SCH ×2 (08:18→21:00)
[2021-09-17 14:00] VITALS: BP 104/51
[2021-09-17 17:07] LABS: BODY FLUID CULTURE Not indicated. (.); LEGIONELLA ANTIGEN URINE Negative (Negative); ORGANISM ID Not indicated. (.); SPECIMEN SOURCE Urine (.); URINE STREP PNEUMONIAE ANTIGEN Negative (Negative)
[2021-09-17] MEDS: RIVAROXABAN 20MG TAB (XARELTO) PO SCH (17:17)
[2021-09-17 20:59] VITALS: BP 118/52
[2021-09-17 21:00] VITALS: BP 126/68
[2021-09-17] MEDS: LEVEMIR (INSULIN DETEMIR) 1 UNITS/0.01ML SC SCH (21:57)
[2021-09-17 22:00] VITALS: BP 120/58
[2021-09-18] MEDS: PIPERACILLIN/TAZOBACTAM SOD 3.375 GM in D5W MINI-BAG PLUS 50 ML IV SCH ×4 (01:24→19:44)
[2021-09-18 06:00] VITALS: BP 126/66
[2021-09-18 06:23] LABS: HEMATOCRIT 26.8 % (42.0-52.0); HEMOGLOBIN 8.5 g/dl (13.5-17.5); MEAN CORPUSCULAR HGB CONC 31.7 g/dl (32.0-36.5); MEAN CORPUSCULAR VOLUME 97.8 fl (80.0-96.0); PLATELET COUNT, AUTOMATED 357 10^3/uL (150-450); RED BLOOD COUNT 2.74 10^6/uL (4.30-6.10); WHITE BLOOD COUNT 13.3 10^3/uL (4.0-10.0)
[2021-09-18] MEDS: SYMBICORT 160/4.5MCG INHALER 6GM INH SCH ×2 (07:12→19:11)
[2021-09-18 07:13] LABS: CREATININE FOR GFR 1.35 MG/DL (0.70-1.30); GLOMERULAR FILTRATION RATE 54.1 (>35); POTASSIUM SERUM 3.6 MEQ/L (3.5-5.1)
[2021-09-18] MEDS: INSULIN LISPRO (NovoLOG) PER UNIT SC SCH ×4 (07:30→21:23)
[2021-09-18] MEDS ORDERED: NS 1,000 ML IV SCH (08:00)
[2021-09-18] MEDS ORDERED: ISOVUE-370 76% 100ML VIAL As Ordered ONE (08:22)
[2021-09-18] MEDS: predniSONE 20 MG TAB PO SCH (08:59)
[2021-09-18] MEDS: DOCUSATE SODIUM 100MG CAPSULE PO SCH ×2 (08:59→21:22)
[2021-09-18] MEDS: allopurinoL 100 MG TAB PO SCH (09:00)
[2021-09-18] MEDS: PANTOPRAZOLE 40MG TAB (PROTONIX) PO SCH (09:00)
[2021-09-18] MEDS: LACTOBACILLUS ACIDOPHILUS CAP (BACID) PO SCH (09:00)
[2021-09-18] MEDS: METOPROLOL TART 25 MG TABLET PO SCH ×2 (09:01→21:22)
[2021-09-18] MEDS: NYSTATIN 100,000 UNITS/GM TOPICAL PWD 15 GM TOP SCH ×2 (09:02→21:23)
[2021-09-18 14:00] VITALS: BP 140/74
[2021-09-18] MEDS: RIVAROXABAN 20MG TAB (XARELTO) PO SCH (16:59)
[2021-09-18] MEDS: LEVEMIR (INSULIN DETEMIR) 1 UNITS/0.01ML SC SCH (21:23)
[2021-09-18 22:00] VITALS: BP 138/75
[2021-09-18 23:42] VITALS: BP 132/68
[2021-09-18] MEDS: RAMELTEON 8 MG TAB (ROZEREM) PO PRN (23:46)
[2021-09-19] MEDS: IPRATROPIUM 0.5MG/ALBUTEROL 2.5MG INH SOL UD 3ML (DUONEB) NEB PRN ×2 (01:12→08:53)
[2021-09-19] MEDS: PIPERACILLIN/TAZOBACTAM SOD 3.375 GM in D5W MINI-BAG PLUS 50 ML IV SCH ×4 (02:06→21:15)
[2021-09-19] MEDS: guaiFENesin ER 600 MG TAB PO PRN ×2 (02:06→08:47)
[2021-09-19] MEDS: SYMBICORT 160/4.5MCG INHALER 6GM INH SCH ×2 (07:12→19:57)
[2021-09-19 07:22] LABS: VENOUS HCO3 25.4 MEQ/L (23.0-27.0); VENOUS O2 SATURATION 94.3 % (60.0-80.0); VENOUS PARTIAL PRESSURE CO2 39.6 mmHg (38.0-50.0); VENOUS PARTIAL PRESSURE O2 74.7 mmHg (30.0-50.0); VENOUS PH 7.425 UNITS (7.330-7.430); VENOUS STANDARD HCO3 25.3 MEQ/L; VENOUS TOTAL CO2 26.6 MEQ/L (24.0-28.0)
[2021-09-19 07:28] LABS: HEMATOCRIT 25.8 % (42.0-52.0); MEAN CORPUSCULAR HEMOGLOBIN 30.5 pg (27.0-33.0); MEAN CORPUSCULAR VOLUME 98.5 fl (80.0-96.0); PLATELET COUNT, AUTOMATED 353 10^3/uL (150-450); RED BLOOD COUNT 2.62 10^6/uL (4.30-6.10)
[2021-09-19 07:48] LABS: CALCIUM LEVEL 8.3 MG/DL (8.8-10.2); CREATININE FOR GFR 1.27 MG/DL (0.70-1.30); GLOMERULAR FILTRATION RATE 58.1 (>35); POTASSIUM SERUM 3.9 MEQ/L (3.5-5.1)
[2021-09-19] MEDS: LACTOBACILLUS ACIDOPHILUS CAP (BACID) PO SCH (08:14)
[2021-09-19] MEDS: PANTOPRAZOLE 40MG TAB (PROTONIX) PO SCH (08:14)
[2021-09-19] MEDS: predniSONE 20 MG TAB PO SCH (08:14)
[2021-09-19] MEDS: NYSTATIN 100,000 UNITS/GM TOPICAL PWD 15 GM TOP SCH ×2 (08:15→21:16)
[2021-09-19] MEDS: allopurinoL 100 MG TAB PO SCH (08:15)
[2021-09-19] MEDS: METOPROLOL TART 25 MG TABLET PO SCH ×2 (08:15→21:15)
[2021-09-19] MEDS: INSULIN LISPRO (NovoLOG) PER UNIT SC SCH ×4 (08:16→21:15)
[2021-09-19] MEDS: DOCUSATE SODIUM 100MG CAPSULE PO SCH ×2 (08:19→21:00)
[2021-09-19] MEDS ORDERED: FUROSEMIDE 40MG/4ML VIAL (J1940) IV SCH (09:00)
[2021-09-19 09:11] VITALS: O2SAT 90
[2021-09-19] MEDS: methylPREDNISolone 125MG 2ML VIAL IV SCH ×2 (13:53→21:15)
[2021-09-19 14:00] VITALS: BP 121/46
[2021-09-19 15:53] LABS: ABG BASE EXCESS 5.5 (-2.0-2.0); ABG HCO3 28.7 MEQ/L (22.0-26.0); ABG PARTIAL PRESSURE CO2 36.3 mmHg (35.0-45.0); ABG PARTIAL PRESSURE O2 91.5 mmHg (75.0-100.0); ABG STANDARD HCO3 29.5 MEQ/L (22.0-26.0); ABG TOTAL CO2 29.8 MEQ/L (23.0-31.0); ABG pH (ARTERIAL) 7.516 UNITS (7.350-7.450)
[2021-09-19] MEDS: FUROSEMIDE 40MG/4ML VIAL (J1940) IV SCH (17:28)
[2021-09-19] MEDS: RIVAROXABAN 20MG TAB (XARELTO) PO SCH (17:28)
[2021-09-19] MEDS: LEVEMIR (INSULIN DETEMIR) 1 UNITS/0.01ML SC SCH (21:14)
[2021-09-19 22:00] VITALS: BP 126/70
[2021-09-20] MEDS: PIPERACILLIN/TAZOBACTAM SOD 3.375 GM in D5W MINI-BAG PLUS 50 ML IV SCH ×4 (02:05→21:21)
[2021-09-20 05:17] VITALS: BP 148/78
[2021-09-20] MEDS: methylPREDNISolone 125MG 2ML VIAL IV SCH (05:19)
[2021-09-20 06:00] VITALS: BP 150/77
[2021-09-20 06:39] LABS: HEMATOCRIT 24.9 % (42.0-52.0); HEMOGLOBIN 8.2 g/dl (13.5-17.5); MEAN CORPUSCULAR HEMOGLOBIN 31.8 pg (27.0-33.0); MEAN CORPUSCULAR HGB CONC 32.9 g/dl (32.0-36.5); MEAN CORPUSCULAR VOLUME 96.5 fl (80.0-96.0); PLATELET COUNT, AUTOMATED 305 10^3/uL (150-450); RED BLOOD COUNT 2.58 10^6/uL (4.30-6.10); WHITE BLOOD COUNT 9.7 10^3/uL (4.0-10.0)
[2021-09-20] MEDS: SYMBICORT 160/4.5MCG INHALER 6GM INH SCH ×2 (07:17→19:30)
[2021-09-20 07:38] LABS: CALCIUM LEVEL 8.5 MG/DL (8.8-10.2); CREATININE FOR GFR 1.5 MG/DL (0.70-1.30); GLOMERULAR FILTRATION RATE 47.9 (>35); POTASSIUM SERUM 3.9 MEQ/L (3.5-5.1)
[2021-09-20 09:00] VITALS: O2SAT 93
[2021-09-20] MEDS: DOCUSATE SODIUM 100MG CAPSULE PO SCH ×3 (09:00→21:21)
[2021-09-20] MEDS: INSULIN LISPRO (NovoLOG) PER UNIT SC SCH ×4 (09:07→21:24)
[2021-09-20] MEDS: LACTOBACILLUS ACIDOPHILUS CAP (BACID) PO SCH (09:09)
[2021-09-20] MEDS: allopurinoL 100 MG TAB PO SCH (09:09)
[2021-09-20] MEDS: FUROSEMIDE 40MG/4ML VIAL (J1940) IV SCH ×2 (09:09→17:44)
[2021-09-20] MEDS: NYSTATIN 100,000 UNITS/GM TOPICAL PWD 15 GM TOP SCH ×2 (09:10→21:25)
[2021-09-20] MEDS: METOPROLOL TART 25 MG TABLET PO SCH ×2 (09:10→21:24)
[2021-09-20] MEDS: PANTOPRAZOLE 40MG TAB (PROTONIX) PO SCH (09:10)
[2021-09-20] MEDS: IPRATROPIUM 0.5MG/ALBUTEROL 2.5MG INH SOL UD 3ML (DUONEB) NEB PRN (10:24)
[2021-09-20 14:00] VITALS: BP 143/76
[2021-09-20 16:52] LABS: ABG BASE EXCESS 6.8 (-2.0-2.0); ABG HCO3 30.5 MEQ/L (22.0-26.0); ABG PARTIAL PRESSURE CO2 40.2 mmHg (35.0-45.0); ABG STANDARD HCO3 30.5 MEQ/L (22.0-26.0); ABG TOTAL CO2 31.7 MEQ/L (23.0-31.0); ABG pH (ARTERIAL) 7.498 UNITS (7.350-7.450)
[2021-09-20] MEDS: RIVAROXABAN 20MG TAB (XARELTO) PO SCH (17:44)
[2021-09-20 21:05] VITALS: BP 147/79
[2021-09-20] MEDS: LEVEMIR (INSULIN DETEMIR) 1 UNITS/0.01ML SC SCH (21:23)
[2021-09-20 21:24] VITALS: BP 150/82
[2021-09-21] MEDS ORDERED: methylPREDNISolone 125MG 2ML VIAL IV SCH (09:00)
== END 2021-09-21 01:00 | disposition left against medical advice (07) | DRG 871 ==
LOC: M ED 03:21 → M ED INP 03:22 → ENRESERV 11:08 → M MSPAV 14:19 → OBSVTOIN 15:51
PROVIDERS: ADMIT Internal Medicine; ATTEND Internal Medicine
PROC: B246ZZZ Ultrasonography of Right and Left Heart (ICD-10-PCS; 2021-09-07)
PROC: 0S9D3ZX Drainage of Left Knee Joint, Percutaneous Approach, Diagnostic (ICD-10-PCS; principal; 2021-09-10)
DX: A41.9 Sepsis, unspecified organism (principal); J69.0 Pneumonitis due to inhalation of food and vomit; J96.01 Acute respiratory failure with hypoxia; I50.33 Acute on chronic diastolic (congestive) heart failure; L03.116 Cellulitis of left lower limb; N17.9 Acute kidney failure, unspecified; F05 Delirium due to known physiological condition; I13.0 Hypertensive heart and chronic kidney disease with heart failure and stage 1 through stage 4 chronic kidney disease, or unspecified chronic kidney disease; D72.829 Elevated white blood cell count, unspecified; Z66 Do not resuscitate; E11.622 Type 2 diabetes mellitus with other skin ulcer; Z87.891 Personal history of nicotine dependence; R65.20 Severe sepsis without septic shock; E11.22 Type 2 diabetes mellitus with diabetic chronic kidney disease; N18.9 Chronic kidney disease, unspecified; Z20.822 Contact with and (suspected) exposure to COVID-19; Z79.84 Long term (current) use of oral hypoglycemic drugs; Z79.899 Other long term (current) drug therapy; I48.0 Paroxysmal atrial fibrillation; T36.8X5A Adverse effect of other systemic antibiotics, initial encounter; J45.909 Unspecified asthma, uncomplicated; E87.70 Fluid overload, unspecified; B96.1 Klebsiella pneumoniae [K. pneumoniae] as the cause of diseases classified elsewhere; B95.5 Unspecified streptococcus as the cause of diseases classified elsewhere; S81.812A Laceration without foreign body, left lower leg, initial encounter; W18.00XA Striking against unspecified object with subsequent fall, initial encounter; Y92.230 Patient room in hospital as the place of occurrence of the external cause; I87.2 Venous insufficiency (chronic) (peripheral); M10.9 Gout, unspecified; N48.89 Other specified disorders of penis; D64.9 Anemia, unspecified; R74.01 Elevation of levels of liver transaminase levels; R91.8 Other nonspecific abnormal finding of lung field; Z91.19 Patient's noncompliance with other medical treatment and regimen